=== PATIENT | male | born 2000 | race Caucasian/White ===

== ENCOUNTER 2022-11-13 12:35 | Observation (INO) | payer BC, MEDICAID ==
[~2022-11-13] VITALS: Ht 165.1 cm; Wt 77.1 kg
[~2022-11-13 12:35] MED LIST: BACL10TA4 GT; CLON1TAB GT; DOCU-299 GT; FERR-212 GT; KEP500L GT; LACT500C2 GT; LAM200 GT; LANS15EC28 GT; MELA1TAB32 GT; MIRABULK GT; PEG15DRO10 OP; PIPE1SOL IV; ROB1 GT; SCOP0.332 TP; Vancomycin Per Pharmacy MC
[2022-11-13 12:42] VITALS: BP 128/93
--- NOTE | 2022-11-13 12:44 | NUR ---
PT BIBA DRAW SHEETED TO BED 11
[2022-11-13 13:39] LABS: BASOPHILS # (AUTO) 0.1 K/uL (0.00-0.22); BASOPHILS % (AUTO) 0.4 % (0.0-2.0); EOSINOPHILS # (AUTO) 0.1 K/uL (0-0.4); EOSINOPHILS % (AUTO) 0.5 % (0.0-4.0); HEMATOCRIT 38.4 % (36-52); HEMOGLOBIN 12.8 g/dL (12.0-18.0); LYMPHOCYTES # (AUTO) 1.4 K/uL (2.0-11.5); LYMPHOCYTES % (AUTO) 9.7 % (20.5-51.1); MEAN CORPUSCULAR HEMOGLOBIN 31 pg (27-31); MEAN CORPUSCULAR HGB CONC 33 g/dL (33-37); MONOCYTES # (AUTO) 0.9 K/uL (0.8-1.0); MONOCYTES % (AUTO) 5.9 % (1.7-9.3); NEUTROPHILS # (AUTO) 12.5 K/uL (1.8-7.7); NEUTROPHILS % (AUTO) 83.5 % (42.2-75.2); PLATELET COUNT (AUTO) 374 K/uL (140-450); RED BLOOD CELL COUNT(AUTO) 4.18 MIL/uL (4.20-6.10); RED CELL DISTRIBUTION WIDTH 13.6 % (11.6-13.7); WHITE BLOOD COUNT (AUTO) 14.9 K/uL (4.8-10.8)
--- NOTE | 2022-11-13 13:42 | NUR ---
swabbed for Covid Vida antigen and sent to lab
[2022-11-13 13:53] LABS: ALBUMIN 3.5 g/dL (3.4-5.0); ANION GAP 14.1 (8-16); CARBON DIOXIDE 27.2 mmol/L (21-32); POTASSIUM 4.3 mmol/L (3.5-5.1); TOTAL BILIRUBIN 0.5 mg/dL (0.0-1.0)
--- NOTE | 2022-11-13 14:48 | NUR ---
PATIENT TRANFERRED TO RADIOLOGY FOR ABDOMINAL CT SCAN REMOVED FROM VENTILAOR PLACED ON SUPPLEMENTAL OXYGEN AT 15 LPM VIA E-TANK TO AMBU BAG/HME/INLINE SUCTION CATHETER/TRACHEOSTOMY TUBE BAG DEPRESSION EVERY 6 TO 8 SECONDS TOLERATED TRANSFER AND PROCEDURE WELL NO DISTRESS NOTED SATURATION 96%
--- NOTE | 2022-11-13 14:48 | NUR ---
patient transported to CT accompanied by RT and RN.
--- NOTE | 2022-11-13 15:02 | NUR ---
GOOD CHEST RISE DEEP TRACHEAL SUCTION FOR MODERATE THIN PALE YELLOW SECRETINS AIRWAY PATENT
--- NOTE | 2022-11-13 15:04 | NUR ---
patient back from CT. stable at this time.
[2022-11-13] MEDS ORDERED: MORPHINE SULFATE 4 MG/ML SYR IVP PRN (16:35)
[2022-11-13] MEDS: NACL 0.9% 1,000 ML IV SCH (16:52)
[2022-11-13] MEDS ORDERED: cefTRIAXone 1,000 MG VIAL ONE (17:07)
--- NOTE | 2022-11-13 19:58 | NUR ---
194 TRACH CARE DONE.PT SXNED MOD AMTS PALE YELLOW SECRETIONS
--- NOTE | 2022-11-13 21:24 | NUR ---
Dr. 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
[2022-11-14] MEDS: NACL 0.9% 1,000 ML IV SCH ×2 (01:32→17:52)
[2022-11-14 05:43] LABS: BASOPHILS # (AUTO) 0.1 K/uL (0.00-0.22); BASOPHILS % (AUTO) 0.3 % (0.0-2.0); EOSINOPHILS # (AUTO) 0.4 K/uL (0-0.4); EOSINOPHILS % (AUTO) 1.4 % (0.0-4.0); HEMATOCRIT 32.4 % (36-52); HEMOGLOBIN 10.9 g/dL (12.0-18.0); LYMPHOCYTES # (AUTO) 1.2 K/uL (2.0-11.5); LYMPHOCYTES % (AUTO) 3.8 % (20.5-51.1); MEAN CORPUSCULAR HEMOGLOBIN 31 pg (27-31); MEAN CORPUSCULAR HGB CONC 34 g/dL (33-37); MEAN CORPUSCULAR VOLUME 90.9 fL (80-94); MONOCYTES # (AUTO) 0.8 K/uL (0.8-1.0); MONOCYTES % (AUTO) 2.7 % (1.7-9.3); NEUTROPHILS # (AUTO) 28.8 K/uL (1.8-7.7); NEUTROPHILS % (AUTO) 91.8 % (42.2-75.2); PLATELET COUNT (AUTO) 247 K/uL (140-450); RED BLOOD CELL COUNT(AUTO) 3.57 MIL/uL (4.20-6.10); RED CELL DISTRIBUTION WIDTH 13.6 % (11.6-13.7)
[2022-11-14 05:59] LABS: WHITE BLOOD COUNT (AUTO) 31.3 K/uL (4.8-10.8)
[2022-11-14 06:10] LABS: ANION GAP 18.2 (8-16); CARBON DIOXIDE 20.8 mmol/L (21-32); CREATININE 1.3 mg/dL (0.6-1.3)
--- NOTE | 2022-11-14 07:30 | NUR ---
PATIENT BIBAM FROM SUBACUTE D/T TO BLOODY URINE. PATIENT IS FROM A SUBACUTE FACILITY AND IS TRACH-VENT. IN BED WITH N S/S OF ACUTE DISTRESS. . NO N/V/D; SKIN IS PINK/WARM/DRY; AAOX0 WITH EVEN AND STEADY GAIT; LUNGS CLEAR BL; HR EVEN AND REGULAR; PT WITH NO ANY FEVER, CP, SOB, OR COUGH AT THIS TIME; VSS; PATIENT POSITIONED FOR COMFORT; HOB ELEVATED; BEDRAILS UP X2; BED DOWN. PENDING ADMISSION
--- NOTE | 2022-11-14 08:30 | NUR ---
Patient will be admitted to care of DR. CEJA. Admited to TELEMETRY. Will go to room 114. Belongings list completed. Report to LACEY LAWRENCE.
--- NOTE | 2022-11-14 09:45 | NUR ---
PATIENT HAS BEEN SCREENED AND CATEGORIZED HIGH NUTRITION RISK. PATIENT WILL BE SEEN WITHIN 1-2 DAYS OF ADMISSION. REVIEWED BY GUY BUSTILLO RD
--- NOTE | 2022-11-14 11:30 | NUR ---
admitted the patient from emergency room in 114 admitting diagnosis of growth hematuria , urinary tract infection lethargic . will continue to monitor
[2022-11-14 12:00] VITALS: BP 145/95
--- NOTE | 2022-11-14 15:27 | NUR ---
DC PLANNING ASSESSMENT COMPLETE SEE ASSESSMENT FOR DETAILS PT IS A RECENT ADMIT AND WAS DC'D 11 DAYS. OUTREACHED TO ED[place] TO CONFIRM [place] [facility] [place] [facility] [place]AN [place] [facility] [place] Addendum: 11/14/22 at 1528 by Sukh MIN Amended: Links added.
--- NOTE | 2022-11-14 15:54 | NUR ---
11/14/22 RD INITIAL ASSESSMENT COMPLETED PLEASE REFER TO NUTRITION ASSESSMENT UNDER CARE ACTIVITY FOR ESTIMATED NUTRITIONAL NEEDS. 1. CONTINUE NPO, PER MD 2. WHEN MEDICALLY APPROPRIATE, AND PT BEGINS TUBE FEEDING, RECOMMEND VITAL AF 1.2 @50 ML/HR, FWF 250 ML Q6H WILL PROVIDE 1200 ML TOTAL VOLUME, 1440 KCALS, 90 G PROTEIN, AND 1973 ML FREE WATER, MEETING 87% ESTIMATED CALORIE NEEDS AND 91% ESTIMATED PROTEIN NEEDS 3. MONITOR GI AND LAB VALUES. 4. RD TO FOLLOW-UP 2-3 DAYS, HIGH RISK REVIEWED BY GUY BUSTILLO RD
[2022-11-14 16:00] VITALS: BP 137/90
--- NOTE | 2022-11-14 16:25 | NUR ---
DC PLANNING: PER DR DAVE PATIENT HAS A DC ORDER BUT PT'S WBC IS 31.3 PER EDILSON AT [facility] [place] THEY CAN'T ACCEPT PATIENT WITH HIGH WBC NOTIFIED DR DAVE AND HOLD DC . CM TO FOLLOW Addendum: 11/15/22 at 1620 by Vera Villaseñor RN DC PLANNING: PER KELLIE AT [facility] [place] PT CAN GO TO ROOM 27B # TO GIVE REPORT [phone] ARRANGED TRANSPORT WITH [facility] MACHINIST HELPER MARINE TIME 8 PM. NOTIFIED TK BRIONES CM TO FOLLOW Addendum: 11/15/22 at 1630 by Vera Villaseñor RN PER [facility] EARLIEST MACHINIST HELPER MARINE TIME 9:30 PM NOTIFIED NURSE AND [facility] [place] CM TO FOLLOW
--- NOTE | 2022-11-14 18:21 | NUR ---
will endorse to barrel reamer rn for continuity of care . hold discharge order for white blood count of 31.3 continue with antibiotics therapy
--- NOTE | 2022-11-14 18:46 | NUR ---
md mosquera made aware that the mdeication reconciliation will be done . wrote the order for the gastric tube feeding
--- NOTE | 2022-11-14 19:10 | NUR ---
RECEIVED PT IN BED AWAKE. NO S/SX OF PAIN NOR DISCOMFORT. TRACH TO VENT WITH SETTING ORDERED. NO ACUTE RESPIRATORY DISTRESS. SKIN WARM AND DRY TO TOUCH. G-TUBE IN PLACE, VERIFIED VIA AUSCULTATION. WILL START FEEDING ORDERED. MCGRATH CATHETER DRAINING YELLOW URINE BY GRAVITY. SAFETY PRECAUTIONS IN PLACE, CALL LIGHT IN REACH.
[2022-11-14] MEDS: ACETAMINOPHEN 325 MG TAB PO PRN (19:19)
[2022-11-14] MEDS ORDERED: METOPROLOL 5 MG/5 ML VIAL IV PRN (19:50)
--- NOTE | 2022-11-14 19:54 | NUR ---
DR RIOS MADE AWARE OF HR 130'S. NEW ORDER GIVEN AND WILL BE CARRIED OUT.
[2022-11-14 20:00] VITALS: BP 154/81
[2022-11-14] MEDS ORDERED: NON-FORMULARY ITEM ([Vancomycin Per Pharmacy] 1 EA) MC PRN (20:10)
[2022-11-14] MEDS: GLYCOPYRROLATE 1 MG TAB GT SCH (20:53)
[2022-11-14] MEDS: levETIRAcetam 100 MG/ML ORASYR GT SCH (20:53)
[2022-11-14] MEDS: BACLOFEN 10 MG TAB GT SCH (20:54)
[2022-11-14] MEDS: clonazePAM 0.5 MG TAB GT SCH (20:54)
[2022-11-14] MEDS ORDERED: VANCOMYCIN 1,000 MG VIAL ONE (21:01)
[2022-11-14] MEDS: DOCUSATE 100 MG/10 ML UDC PO SCH (21:04)
[2022-11-14] MEDS ORDERED: VANCOMYCIN 1GM/DEXT 5% PREMIX 200 ML IV ONE (22:00)
[2022-11-14] MEDS ORDERED: PIPERACILLIN/TAZOBACTAM 3.375 GM VIAL IV ONE (23:04)
[2022-11-15] VITALS: BP 134/83
[2022-11-15] MEDS ORDERED: PIPERACILLIN TAZO DEXTROSE ISO IV SCH
[2022-11-15] MEDS ORDERED: [UNRECOGNIZED DRUG - OTHER] IV SCH
[2022-11-15] MEDS ORDERED: PIPERACILLIN/TAZOBACTAM 3.375 GM in DEXTROSE 5% 50 ML IV SCH ×2
[2022-11-15 04:00] VITALS: BP 140/81
[2022-11-15] MEDS: GLYCOPYRROLATE 1 MG TAB GT SCH ×3 (04:43→20:23)
[2022-11-15] MEDS: BACLOFEN 10 MG TAB GT SCH ×3 (04:43→20:23)
[2022-11-15] MEDS: ACETAMINOPHEN 325 MG TAB PO PRN (05:02)
--- NOTE | 2022-11-15 05:02 | NUR ---
TEMP-100.5, TYLENOL GIVEN, AM CARE RENDERED, MADE COMFORTABLE IN BED. NO RESIDUAL FROM G TUBE.
[2022-11-15] MEDS: NACL 0.9% 1,000 ML IV SCH ×2 (05:26→18:35)
--- NOTE | 2022-11-15 06:22 | NUR ---
CURRENT TEMP-99.0. ALL NEEDS ATTENDED TO. NO RESIDUAL FROM G TUBE. NO DISTRESS. SAFETY PRECAUTIONS MAINTAINED DURING THE SHIFT, CALL LIGHT IN REACH.
--- NOTE | 2022-11-15 07:02 | NUR ---
receive the patinet from the night order selector rn in rm 114 lethargic admitting diagnosis of hematuria . will continue to monitor
[2022-11-15] MEDS ORDERED: VANCOMYCIN PER PHARMACY MC PRN (07:20)
[2022-11-15 07:34] LABS: BASOPHILS % (AUTO) 0.4 % (0.0-2.0); EOSINOPHILS # (AUTO) 0.1 K/uL (0-0.4); EOSINOPHILS % (AUTO) 0.9 % (0.0-4.0); HEMATOCRIT 28.4 % (36-52); HEMOGLOBIN 9.8 g/dL (12.0-18.0); LYMPHOCYTES # (AUTO) 0.9 K/uL (2.0-11.5); LYMPHOCYTES % (AUTO) 7.9 % (20.5-51.1); MEAN CORPUSCULAR HEMOGLOBIN 32 pg (27-31); MEAN CORPUSCULAR HGB CONC 35 g/dL (33-37); MEAN CORPUSCULAR VOLUME 91.3 fL (80-94); MONOCYTES # (AUTO) 0.9 K/uL (0.8-1.0); MONOCYTES % (AUTO) 8.7 % (1.7-9.3); NEUTROPHILS # (AUTO) 8.9 K/uL (1.8-7.7); NEUTROPHILS % (AUTO) 82.1 % (42.2-75.2); PLATELET COUNT (AUTO) 198 K/uL (140-450); RED BLOOD CELL COUNT(AUTO) 3.11 MIL/uL (4.20-6.10); RED CELL DISTRIBUTION WIDTH 13.5 % (11.6-13.7); WHITE BLOOD COUNT (AUTO) 10.8 K/uL (4.8-10.8)
[2022-11-15 07:39] LABS: ANION GAP 16.3 (8-16); CARBON DIOXIDE 22.9 mmol/L (21-32); CREATININE 1.1 mg/dL (0.6-1.3); POTASSIUM 3.2 mmol/L (3.5-5.1)
[2022-11-15 08:00] VITALS: BP 155/100
[2022-11-15] MEDS ORDERED: LACTOBACILLUS RHAMNOSUS GG 1 EACH CAP GT SCH (09:00)
[2022-11-15] MEDS ORDERED: PEG OP SCH (09:00)
[2022-11-15] MEDS ORDERED: HYPROMELLOSE OP SCH (09:00)
[2022-11-15] MEDS ORDERED: GLYCERIN OP SCH (09:00)
[2022-11-15] MEDS ORDERED: FERROUS SULFATE 325 MG TABEC PO SCH (09:00)
[2022-11-15] MEDS ORDERED: LACTOBACILLUS ACIDOPHILUS GT SCH (09:00)
[2022-11-15] MEDS ORDERED: REFRESH LIQUIGEL OP SCH (09:00)
[2022-11-15] MEDS ORDERED: FERROUS SULFATE 300 MG/5 ML UDC GT SCH (09:00)
[2022-11-15] MEDS ORDERED: LANSOPRAZOLE 30 MG CAPDR GT SCH (09:00)
[2022-11-15] MEDS ORDERED: NON-FORMULARY ITEM (Lansoprazole* (Prevacid 24Hr*) 30 MG) GT SCH (09:00)
[2022-11-15] MEDS: DOCUSATE 100 MG/10 ML UDC PO SCH ×2 (09:38→20:24)
[2022-11-15] MEDS: levETIRAcetam 100 MG/ML ORASYR GT SCH ×2 (09:38→20:23)
[2022-11-15] MEDS: VANCOMYCIN 1,000 MG in DEXTROSE 5% 250 ML IV SCH ×2 (09:39→20:24)
[2022-11-15] MEDS: clonazePAM 0.5 MG TAB GT SCH ×2 (09:43→20:23)
[2022-11-15 12:00] VITALS: BP 146/98
[2022-11-15] MEDS ORDERED: SCOPOLAMINE 1.5 MG/72 HR PATCH TD SCH (12:00)
[2022-11-15] MEDS ORDERED: POTASSIUM CHLORIDE 20% 40 MEQ/15 ML UDC GT SCH (12:30)
--- NOTE | 2022-11-15 13:30 | NUR ---
receive discharge order . follow up with [facility] case manager of the patient . she call me up for confirmation
[2022-11-15 16:00] VITALS: BP 141/72
[2022-11-15] MEDS ORDERED: NON-FORMULARY ITEM (Melatonin/Pyridoxine HCl (B6) (Melatonin 3 mg Tablet) 1 TAB) GT SCH (17:00)
--- NOTE | 2022-11-15 18:25 | NUR ---
will endorse to ship/rec/doc control rn for continuity of care . [facility]
--- NOTE | 2022-11-15 19:30 | NUR ---
RECEIVED PT IN BED WITH EYES CLOSED. NO S/SX OF PAIN NOR DISCOMFORT. NO ACUTE RESPIRATORY DISTRESS, TRACH TO VENT ORDERED. G-TUBE FEEDING TOLERATED WELL. SKIN WARM AND DRY TO TOUCH. SAFETY PRECAUTION IN PLACE, CALL LIGHT IN REACH.
[2022-11-15 20:00] VITALS: BP 136/86
--- NOTE | 2022-11-15 20:00 | NUR ---
REPORT GIVEN TO JEF OF [facility] [place] GO[place] RM 27B.
--- NOTE | 2022-11-15 21:26 | NUR ---
PAT[place] DIS[place] [facility] [place]. REPORT AND DISCHARGE PAPERS GIVEN TO [facility].
[2022-11-16] MEDS ORDERED: POLYETHYLENE GLYCOL 17 GM/PKT GT SCH (09:00)
[2022-11-17] MEDS ORDERED: SCOPOLAMINE 1.5 MG/72 HR PATCH TD SCH (09:00)
== END 2022-11-15 21:30 ==
LOC: MED 12:35 → MTU 16:38
PROVIDERS: ADMIT Student in an Organized Health Care Education/Training Program; ATTEND Student in an Organized Health Care Education/Training Program
DX: A41.9 Sepsis, unspecified organism (principal); Z20.822 Contact with and (suspected) exposure to COVID-19; T83.091A Other mechanical complication of indwelling urethral catheter, initial encounter; D62 Acute posthemorrhagic anemia; N39.0 Urinary tract infection, site not specified; R31.0 Gross hematuria; J96.11 Chronic respiratory failure with hypoxia; G93.1 Anoxic brain damage, not elsewhere classified; R53.81 Other malaise; E11.9 Type 2 diabetes mellitus without complications; R13.10 Dysphagia, unspecified; Z79.899 Other long term (current) drug therapy
CPT/HCPCS: 36415; 74176; 80048; 80053; 85025; 86886; 86900; 86901; 87426; 94003; 94760; 96361; 96365; 96366; 96367; 99285; G0378; J0696; J2543; J3370; J3490; J7060